=== PATIENT | female | born 1980 | race Caucasian/White ===

== ENCOUNTER 2016-11-21 17:55 | Inpatient (IN) | payer BC ==
[~2016-11-21] VITALS: Ht 170.2 cm; Wt 85.3 kg
--- NOTE | ~2016-11-21 | HP ---
Unit #: [id number] #: [id number] Patient: CHRISTINA NULL [id number] [place] [address] [id number] MR#: [id number] NAME: CHRISTINA NULL ROOM: P210 Age: 35 Sex: F Admission Date: 11/21/2016 : 1980 Attending Physician: Suresh Gomez M.D. Admitting Physician: Suresh Gomez M.D. Primary Care Physician: Primary Care Physician No HISTORY AND PHYSICAL HISTORY OF PRESENT ILLNESS Christina is a 35 year old admitted to [address] [place] [address] because of her abuse of alcohol. She is detoxing. PAST MEDICAL HISTORY 1. Long history of alcohol abuse. 2. PCOS. PAST SURGICAL HISTORY 1. T and A. 2. Gastric bypass, 2012. ALLERGIES No known drug allergies. SOCIAL HISTORY She does not smoke. Drinks at least a pint of liquor on a daily basis. Denies illicit drug use. FAMILY HISTORY Medically noncontributory. REVIEW OF SYSTEMS CONSTITUTIONAL: No fever or chills. HEENT: Denies any sore throat, ear pain or runny nose. CARDIOVASCULAR: Denies chest pain, irregular heart rhythm or palpitations. CHEST: Denies shortness of breath or cough. No hemoptysis. GASTROINTESTINAL: Denies nausea, vomiting, diarrhea or chronic constipation. ENDOCRINE: Denies history of increased thirst or urination. No recent significant weight loss or gain. GENITOURINARY: Denies dysuria, frequency, or hematuria. SKIN: Denies any rashes. HEMATOLOGIC: Denies history of increased bleeding or bruising. MUSCULOSKELETAL: Denies any hot, swollen joints. No generalized muscle pain. NEUROLOGIC: Denies problems with vision or speech. No frequent, severe headaches. No numbness, tingling or weakness in any extremities. Denies loss of bladder or bowel control. CURRENT MEDICATIONS 1. Detox protocol. 2. Zoloft 50 mg daily. Unit #: [id number] #: [id number] Patient: CHRISTINA NULL 3. Naproxen 500 mg b.i.d. p.r.n. PHYSICAL EXAMINATION GENERAL: Alert, well-nourished, in no apparent distress. VITAL SIGNS: Blood pressure 130/80, heart rate 88, respirations 16, temperature 98.6. WEIGHT: 188. HEIGHT: 5 feet 7 inches. SKIN: Warm and dry without rash or lesion. HEENT: Normocephalic. TMs not viewed. Oral and nasal passages clear. Conjunctivae clear. PERRLA. EOMs intact. NECK: Supple without lymphadenopathy or thyromegaly. HEART: Regular rate and rhythm without murmur. LUNGS: Clear. ABDOMEN: Soft, nontender. : Not done. EXTREMITIES: No evidence of cyanosis, clubbing or edema. Moves all without focal deficit. NEUROLOGICAL: Grossly within normal limits. Cranial Nerves: II: Visual mobley are intact. III, IV AND : Extraocular movements are intact. Pupils are equal, round and reactive to light. V: Facial sensation is grossly normal. VII: Facial movements and expression are normal. VIII: Auditory acuity grossly intact. IX, X: Uvula is midline. Phonation is normal. XI: Patient shrugs shoulders and turns head normally. XII: Tongue protrudes in the midline. Sensory and Motor Function: Sensory and motor sensation is grossly normal. Motor: moves all extremities well. Coordination: Gait is normal. Deep Tendon Reflexes: Intact. IMPRESSION Psychiatric admission. RECOMMENDATIONS PSYCHIATRIC: Per psychiatrist. MEDICAL: See no contraindication to participate in facility's activities. MEDICAL PROGNOSIS Good. MEDICAL CONDITION Stable. Dictated by... Denita AllisonAChantal-Lisa. for Venessa Moreau/addy TD: 11/22/2016 20:36 JOB #: [id number] Unit #: [id number] #: [id number] Patient: CHRISTINA NULL HISTORY AND PHYSICAL Page 1 of 1 X Amber Connolly PA X HISTORY AND PHYSICAL
--- NOTE | ~2016-11-21 | DS ---
Unit #: [id number] #: [id number] Patient: JOHN BARTON [id number] [facility] [address] [place] [address] [id number] I MR#: [id number] NAME: JOHN BARTON ROOM: [facility] Age: 36 Sex: F Admission Date: 11/21/2016 : 1980 Discharge Date: 11/25/2016 Attending Physician: Suresh Gomez M.D. Primary Care Physician: Primary Care Physician No DISCHARGE SUMMARY IDENTIFYING DATA Ms. Barton is a 35-year-old white female, who is a resident of [place], [place], and was transferred to us from [facility]. DISCHARGE DIAGNOSES Psychiatric: Alcohol dependence, moderate and acute withdrawals; alcohol-induced mood disorder. Medical: None. Stressors: Moderate psychosocial stressors. HISTORY OF PRESENT ILLNESS Please see initial psychiatric evaluation for details. PAST PSYCHIATRIC HISTORY Please see initial psychiatric evaluation for details. PAST MEDICAL HISTORY Please see initial psychiatric evaluation for details. HOSPITAL COURSE The patient was admitted to the adult chemical dependency and psychiatric unit at [facility] and was oriented to the hospital environment. Routine p.r.n. medications were initiated, and she was started back on home medication and alcohol detox protocol was initiated and she was closely monitored. The patient was taking medications regularly and was tolerating them fairly well and was able to come out of the detox without any complications and was willing to continue treatment on an outpatient basis and as such, it was decided that she will be discharged home and will continue treatment on an outpatient basis. DISCHARGE MEDICATIONS None. DISCHARGE CONDITION Stable. PROGNOSIS Fair. Dictated by... Suresh Gomez M.D. IAA/modl Unit #: [id number] #: [id number] Patient: JOHN BARTON TD: 11/28/2016 00:29 JOB #: [id number] DISCHARGE SUMMARY Page 1 of 1 X Suresh Gomez MD X DISCHARGE SUMMARY
--- NOTE | ~2016-11-21 | PN ---
Unit #: [id number] #: [id number] Patient: JOHN BARTON [id number] [facility] [address] [place] [address] [id number] MR#: [id number] NAME: JOHN BARTON [place] [facility] [place] Age: 35 Sex: F Admission Date: 11/21/2016 : 1980 Attending Physician: Suresh Gomez M.D. Admitting Physician: Suresh Gomez M.D. Primary Care Physician: Primary Care Physician Megan LR PROGRESS NOTES DATE 11/23/2016 DISCUSSION Ms. Barton is a 35-year-old white female who was seen today and chart was reviewed and case was discussed with the staff. She has been anxious, withdrawn, depressed and rather seclusive to herself. Meanwhile, she has been cooperative with treatment recommendations and has been taking medications and tolerating them fairly well. MENTAL STATUS EXAMINATION Young white female who was casually dressed with fair personal hygiene and appears to be in no acute distress or discomfort. She was awake and alert with intact orientation. Her mood was anxious with congruent affect. She denies any suicidal or homicidal ideations. Her insight and judgement remains slightly impaired. TREATMENT PLAN 1. Will continue on current medications and treatment protocol. Will monitor her response to the medications and make further adjustments as needed. 2. Will continue to follow up. Dictated by... Venessa Chavez/addy TD: 11/23/2016 15:19 JOB #: [id number] Unit #: [id number] #: [id number] Patient: JOHN BARTON PROGRESS NOTES Page 1 of 1 X Suresh Gomez MD PROGRESS NOTE
--- NOTE | ~2016-11-21 | PA ---
Unit #: [id number] #: [id number] Patient: JOHN BARTON [id number] [facility] [address] [place] [address] [id number] MR#: [id number] NAME: JOHN BARTON ROOM: P210 Age: 35 Sex: F Admission Date: 11/21/2016 : 1980 Date of Assessment: 11/22/2016 Attending Physician: Suresh Gomez M.D. Admitting Physician: Suresh oGmez M.D. Primary Care Physician: Primary Care Physician No PSYCHIATRIC ASSESSMENT IDENTIFYING DATA Ms. Barton is a 35-year-old white female, who is a resident of [place], [place] and was transferred to us from [facility] [place]. CHIEF COMPLAINT "I'm an alcoholic, I have been going through a rough time." HISTORY OF PRESENT ILLNESS Ms. Barton is a 35-year-old white female, with history of alcohol dependence, who was taken to the [facility] who comes in accompanied by her and upon presentation to the emergency room her blood alcohol level was 0.392 and she stated, "I am an alcoholic, and I have been going through a rough time, and I am finally getting there." The patient reports that she has been drinking alcohol daily for the past two years and has been drinking a pint of bourbon and four shots of 99 proof liquor on a daily basis and reports some significant consequences, because of her addiction and anxiety, irritability, listlessness, feelings of hopelessness and helplessness but denies any suicidal ideation, intent, or plan. SUBSTANCE ABUSE HISTORY The patient reports experimentation with cannabis but alcohol has been her drug of choice. She has been drinking a pint and four shots on a daily basis. PAST PSYCHIATRIC HISTORY The patient has not had any prior inpatient or outpatient psychiatric treatment. I reviewed the medical records and she is receiving Zoloft from her primary care physician. PAST MEDICAL HISTORY No acute or chronic medical illnesses. MEDICATION ALLERGIES No known medication allergies. CURRENT MEDICATIONS Zoloft and naproxen. PERSONAL AND SOCIAL HISTORY Gloyfk-cqcx-evjj-old white female, who reports that she is and lives at home with her and has a fairly decent social support system. Unit #: [id number] #: [id number] Patient: JOHN BARTON MENTAL STATUS EXAM Young white female, who was casually dressed with fair personal hygiene and appears to be in no acute distress or discomfort. She was awake and alert on interaction with intact orientation to time, place, and person. Her mood is anxious with a congruent affect. Her speech is slow and restricted in content. Her thought processes are disorganized with some looseness of associations and suicidal ideations. Her insight and judgment remain significantly impaired. DIAGNOSTIC IMPRESSION Psychiatric: [place] I: Alcohol dependence, moderate, and acute withdrawal. Alcohol-induced mood disorder. [place] II: [place] III: None. [place] IV: Moderate psychosocial stressors. [place] V: TREATMENT PLAN 1. The patient has presented with a history of mood disorder and has been decompensating and will need inpatient hospitalization for safety and stabilization, will start him back on his home medications and will adjust the medications, also initiate alcohol detox protocol. 2. Supportive therapy was provided to the patient. 3. Safe, structured, and nourishing environment will be provided. ESTIMATED LENGTH OF STAY Qoie-mn-eaen days. ABILITY TO HELP SELF Limited. WILLINGNESS TO HELP SELF The patient appears to be willing to help self. STRENGTHS 1. Communicative. 2. Cooperative. PROBLEMS 1. Chronic dysphoric symptoms. 2. Chronic chemical dependency. 3. Poor social support system. DISCHARGE CRITERIA This will be contingent upon the patient's ability to show resolution of her depression and anxiety, and her ability to go through detox without having any significant withdrawal symptoms, as well as her ability stay safe to herself, particularly after discharge from the hospital. Dictated by... Suresh Gomez M.D. Unit #: [id number] #: [id number] Patient: JOHN BARTON MARLENE/jeffrey TD: 11/22/2016 11:29 JOB #: [id number] PSYCHIATRIC ASSESSMENT Page 1 of 1 X Suresh Gomez MD X PSYCHIATRIC ASSESSMENT
--- NOTE | ~2016-11-21 | PN ---
Unit #: [id number] #: [id number] Patient: JOHN BARTON [id number] [facility] [address] [place] [address] [id number] I MR#: [id number] NAME: JOHN BARTON ROOM: P210 Age: 35 Sex: F Admission Date: 11/21/2016 : 1980 Attending Physician: Suresh Gomez M.D. Admitting Physician: Suresh Gomez M.D. Primary Care Physician: Primary Care Physician Megan LR PROGRESS NOTES DATE 11/24/2016 DISCUSSION Ms. Barton is a 35 year old who was seen today and chart was reviewed and case was discussed with the staff. She has been anxious, withdrawn though reports improvement in her depressive symptoms and has been cooperative with treatment recommendations and has been coming to therapy groups and has been participating. MENTAL STATUS EXAMINATION Young white female who was casually dressed with fair personal hygiene and appears to be in no acute distress or discomfort. She was awake and alert on interaction with intact orientation. Her mood was anxious with congruent affect. She denies any suicidal or homicidal ideations. Her insight and judgement remains slightly impaired. TREATMENT PLAN 1. Will continue on current medications and treatment protocol. Will monitor her response to the medications and make further adjustments as needed. 2. Will continue to follow up. Dictated by... Venessa Chavez/addy TD: 11/24/2016 21:30 JOB #: [id number] Unit #: [id number] #: [id number] Patient: JOHN BARTON PROGRESS NOTES Page 1 of 1 X Suresh Gomez MD PROGRESS NOTE
--- NOTE | ~2016-11-21 | PN ---
Unit #: [id number] #: [id number] Patient: JOHN BARTON [id number] [facility] [address] [place] [address] [id number] I MR#: [id number] NAME: JOHN BARTON ROOM: [facility] Age: 35 Sex: F Admission Date: 11/21/2016 : 1980 Attending Physician: Suresh Gomez M.D. Admitting Physician: Suresh Gomez M.D. Primary Care Physician: Primary Care Physician Megan WARD NOTES DATE OF SERVICE 11/23/2016 DISCUSSION Ms. Barton is a 35-year-old white female who was seen today. Chart was reviewed and case was discussed with the staff. She has been anxious, withdrawn, and rather seclusive to herself. Meanwhile, she has been cooperative with the treatment recommendations and has been taking the medications and tolerating them fairly well with no reported side effects. MENTAL STATUS EXAMINATION Young white female who is casually dressed with fair personal hygiene, appears to be in no acute distress or discomfort. She was awake and alert on interaction with intact orientation. Her mood is anxious with congruent affect. She denies any suicidal or homicidal ideations. Her insight and judgment remain slightly impaired. TREATMENT PLAN 1. We will continue her on her current medications and treatment protocol. We will monitor her response and make further adjustments as needed. 2. We will continue to follow up. Dictated by... Suresh Gomez M.D. IAA/bzg TD: 11/23/2016 15:09 JOB #: [id number] [facility] PROGRESS NOTES Page 1 of 1 X Suresh Gomez MD PROGRESS NOTE
[2016-11-23 18:03] LABS: BASOPHIL% 1.2 % (0-2.5); EOSINOPHIL% 0.6 % (0.0-7.0); HEMATOCRIT 46.1 % (35.0-45.0); HEMOGLOBIN 15.5 gm/dL (12.0-16.0); LYMPHOCYTE# 1.1 X10e3 (1.0-3.5); LYMPHOCYTE% 26.2 % (17.0-45.0); MEAN CELL VOLUME 103.7 FL (83-96); MEAN CORPUSCULAR HEMOGLOBIN 34.8 PG (28-34); MEAN CORPUSCULAR HGB CONC 33.6 g/dL (30-36); MEAN PLATELET VOLUME 11.3 FL (6.5-11.5); MONOCYTE# 0.5 X10e3 (0-1.0); NEUTROPHIL# 2.4 X10e3 (1.5-7.1); PLATELET COUNT 116 X10e3 (140-420); RED BLOOD COUNT 4.44 X10e (3.90-5.30); RED CELL DISTRIBUTION WIDTH 13.8 % (11.0-15.5); WHITE BLOOD COUNT 4.1 X10e3 (4.0-10.5)
[2016-11-23 18:07] LABS: DIFF IND NO
[2016-11-23 18:26] LABS: ALBUMIN SERUM 3.6 g/dL (3.5-5.0); BILIRUBIN,TOTAL 3.9 mg/dL (0.2-2.0); BUN/CREATININE RATIO 18.33; CALCIUM SERUM 9.3 mg/dL (8.4-10.2); CREATININE SERUM 0.6 mg/dL (0.6-1.4); GLOM FILT RATE Estimated 118.9 mL/min (>60); POTASSIUM 3.8 mmol/L (3.5-5.1); PROTEIN TOTAL SERUM 6.9 g/dL (6.0-8.3)
[2016-11-26 12:39] LABS: URINE APPEARANCE CLEAR; URINE BLOOD NEG (NEG); URINE COLOR DK YELLOW; URINE GLUCOSE NEG (NEG); URINE KETONE NEG (NEG); URINE LEUKOCYTE ESTERASE NEG (NEG); URINE NITRATE NEG (NEG); URINE PH 6.5 (5-8); URINE PROTEIN NEG (NEG)
[2016-11-26 12:47] LABS: URINE BILIRUBIN NEG (NEG)
[2016-11-26 12:52] LABS: AMPHETAMINE NEG (NEG); BARBITURATES NEG (NEG); BENZODIAZEPINES POS (NEG); COCAINE NEG (NEG); MARIJUANA NEG (NEG); OPIATES NEG (NEG); TRICYCLIC ANTIDEPRESSANTS NEG (NEG); U METHADONE NEG (NEG)
== END 2016-11-25 13:00 | disposition home or self-care (01) | DRG 897 ==
LOC: P2S 23:43
PROVIDERS: Psychiatry & Neurology Psychiatry
PROC: HZ2ZZZZ Detoxification Services for Substance Abuse Treatment (ICD-10-PCS; principal; 2016-11-21)
DX: F10.239 Alcohol dependence with withdrawal, unspecified (principal); F10.24 Alcohol dependence with alcohol-induced mood disorder; E28.2 Polycystic ovarian syndrome; Z98.84 Bariatric surgery status
CPT/HCPCS: 80053; 80307; 81003; 84703; 85025; 86592